=== PATIENT | male | born 1955 | race Two or more races ===

== ENCOUNTER 2024-06-19 22:15 | Emergency (ER) | payer OTHER ==
[~2024-06-19] VITALS: Ht 170.2 cm; Wt 77.1 kg
[2024-06-19] MEDS ORDERED: ZOLOFT20 MG/1 ML (22:59)
[2024-06-19] MEDS ORDERED: TAMS0.4C (22:59)
[2024-06-19] MEDS ORDERED: RESTORIL7.5 MG (22:59)
[2024-06-20] MEDS ORDERED: PROMETHAZINE HCL 50 MG/ML AMPUL IM STA (00:18)
[2024-06-20] MEDS ORDERED: KETOROLAC TROMETHAMINE 30 MG VIAL IV STA (00:19)
[2024-06-20] MEDS ORDERED: KETOROLAC TROMETHAMINE 30 MG VIAL ONE (00:27)
[2024-06-20] MEDS ORDERED: PROMETHAZINE HCL 50 MG/ML AMPUL IM ONE (00:27)
[2024-06-20] MEDS ORDERED: SODIUM CHLORIDE 0.45 % 1,000 ML IV ONE (00:30)
[2024-06-20 01:27] LABS: URINE APPEARANCE Clear; URINE BILIRRUBIN Negative (NEGATIVE); URINE BLOOD Moderate; URINE COLOR Yellow; URINE GLUCOSE Negative (NEGATIVE); URINE LEUKOCYTE Trace; URINE NITRATE Negative; URINE PROTEIN Negative (NEGATIVE); URINE UROBILINOGEN 0.2 E.U./dl
[2024-06-20 01:29] LABS: HEMATOCRIT 41.6 % (39.0-48.0); HEMOGLOBIN 14.2 g/dL (13-16.00); MEAN CELL VOLUME 91.9 fL (80.0-100.00); MEAN CORPUSCULAR HEMOGLOBIN 31.4 pg (27.00-32.0); MEAN CORPUSCULAR HGB CONC 34.2 g/dl (32.0-36.0); RED BLOOD COUNT 4.52 M/uL (4.00-6.00); RED CELL DISTRIBUTION WIDTH 13.2 % (11.5-14.5)
[2024-06-20 01:30] LABS: URINE BACTERIA 13.4 uL (0.0-1933); URINE RBC 48.9 uL (0.0-20.8); URINE WBC 12.4 uL (0.0-23.2)
[2024-06-20 01:47] LABS: PLATELET COUNT 129 K/uL (150-450)
[2024-06-20 01:51] LABS: URINE CAST 0.14 uL (0.0-1.40); URINE EPITHELIAL CELLS 0.4 uL (0.0-38.8); URINE KETONE 40 (NEGATIVE)
[2024-06-20 02:29] LABS: CALCIUM 9.4 mg/dL (8.5-10.1); CREATININE SERUM 1.36 mg/dL (0.70-1.30); GFR 51.8; POTASSIUM 3.97 mEq/L (3.5-5.1)
[2024-06-20] MEDS ORDERED: KETO10TA2 PO (04:28)
== END 2024-06-20 04:56 ==
LOC: ER 22:18
PROVIDERS: General Practice
DX: N20.1 Calculus of ureter (principal); Z88.2 Allergy status to sulfonamides; N40.0 Benign prostatic hyperplasia without lower urinary tract symptoms; K57.32 Diverticulitis of large intestine without perforation or abscess without bleeding
CPT/HCPCS: 36415; 74176; 96365; 96372; 99284; J1885; J2250